=== PATIENT | female | born 1960 ===

== ENCOUNTER → 2023-02-06 12:35 | Outpatient (CLI) | payer OTHER, SELFPAY ==
--- NOTE | 2023-02-06 | DI.MRI.S_ITS ---
PROCEDURE: MR LUMBAR SPINE WO CON INDICATIONS: LUMBAR STRAIN TECHNIQUE: Noncontrast sagittal T1 spin echo and T2 fast echo, sagittal STIR, and T2 fast spin echo through the lumbar spine. In cases with scoliosis, additional coronal T2 fast spin echo may be performed. COMPARISON: [facility], [place], XR LUMBAR SPINE WITH OBLIQUES PLUS FLEXION EXTENSION, 02/02/2023, 13:02. FINDINGS: Image quality: Excellent. Alignment and Curvature: Trace retrolisthesis L4-5, accentuated by endplate osteophytosis along the right. Otherwise normal bone alignment. Bone Marrow: Mixed type 2 and three right-sided endplate Modic changes at L4-5. Small L4 vertebral body hemangioma. Small Schmorl's node in the L5 superior endplate. Spinal Cord: Conus medullaris terminates at the L1 level. Visualized cord demonstrates normal signal and size. Paraspinous Soft Tissues: No paravertebral masses. T12-L1: Normal appearance. L1-L2: Normal appearance. L2-L3: Mild disc desiccation and minor circumferential disc bulge. Minor facet arthropathy. L3-L4: Mild disc desiccation and height loss. Broad-based sub foraminal disc bulge bilaterally, left greater than right but without causing significant foraminal stenosis. Disc bulge slightly encroaches on the left lateral recess. Mild facet arthropathy. L4-L5: Mild to moderate disc height loss and foraminal and lateral disc osteophyte. Mild facet arthropathy and disc osteophyte encroaches on the L5 nerve root in the right lateral recess. Mild right neural foraminal narrowing. L5-S1: Normal appearance. IMPRESSION: 1. 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 Correlate with radiculopathy at this distribution. 2. Mild encroachment on the left lateral recess at L3-4 by disc bulge. Potential left L4 radiculopathy. Dictated by: Awa Borja M.D. on 02/08/2023 at 13:02 Approved by: Awa Borja M.D. on 02/08/2023 at 13:19
== END ==
PROVIDERS: PCP Physician Assistant Medical; Referring Provider Physical Medicine & Rehabilitation Pain Medicine; Visit Provider Physical Medicine & Rehabilitation Pain Medicine
DX: S39.012S Strain of muscle, fascia and tendon of lower back, sequela (principal); M25.78 Osteophyte, vertebrae; M51.36 Other intervertebral disc degeneration, lumbar region
CPT/HCPCS: 72148